=== PATIENT | male | born 2000 ===

== ENCOUNTER 2021-09-18 19:07 | Emergency (ER) | payer SELFPAY ==
[~2021-09-18] VITALS: Ht 170.2 cm; Wt 75.0 kg
[2021-09-18 19:22] VITALS: BP 137/86
[2021-09-18] MEDS ORDERED: LIDOcaine 1% W/epiNEPHrine 1:200,000 10ml vial IJ ONE (20:20)
[2021-09-18] MEDS ORDERED: LIDOCAINE 2% w/EPI 1:100:000 30mL injection MDV**cath lab 1 only SQ ONE (20:25)
[2021-09-18] MEDS ORDERED: TETanus/Pertussis (Acell)/Diphther VAC/PF (Tdap-Adult) 0.5ml syringe IMVAC ONE (21:40)
== END 2021-09-18 21:53 | disposition home or self-care (01) ==
LOC: ER 19:11
DX: S71.132A Puncture wound without foreign body, left thigh, initial encounter (principal); M25.562 Pain in left knee; Z20.3 Contact with and (suspected) exposure to rabies; X58.XXXA Exposure to other specified factors, initial encounter; Y93.89 Activity, other specified; Y92.89 Other specified places as the place of occurrence of the external cause; Y99.8 Other external cause status
CPT/HCPCS: 73560; 90471; 90715; 99283